=== PATIENT | female | born 1995 | race Caucasian/White ===

== ENCOUNTER 2019-03-11 09:30 | Inpatient (IN) ==
[2019-03-11] MEDS ORDERED: MEPERIDINE 25 MG/1 ML VIAL IV PRN (09:56)
[2019-03-11] MEDS ORDERED: ONDANSETRON 4 MG/2 ML VIAL IV PRN ×2 (09:56→12:06)
[2019-03-11] MEDS ORDERED: BUTORPHANOL 2 MG/ML VIAL IV PRN (09:56)
[2019-03-11] MEDS ORDERED: diphenhydrAMINE 50 MG/1 ML VIAL IV PRN ×2 (09:58)
[2019-03-11] MEDS ORDERED: FAMOTIDINE 20 MG/2 ML VIAL IV ONE (09:58)
[2019-03-11] MEDS ORDERED: CITRIC ACID/SODIUM CITRATE 30 ML UDCUP PO ONE (09:58)
[2019-03-11] MEDS ORDERED: PROMETHAZINE 25 MG/1 ML VIAL IM ONE (09:58)
[2019-03-11] MEDS ORDERED: NALOXONE 0.4 MG/ML VIAL IV PRN (09:58)
[2019-03-11] MEDS ORDERED: LACTATED RINGERS 1,000 ML IV ONE (09:58)
[2019-03-11] MEDS ORDERED: ePHEDrine 50 MG/ML AMP IV PRN (09:58)
[2019-03-11] MEDS ORDERED: fentaNYL 2 MCG/ROPIV 0.2% EPID 100 ML EPIDURAL SCH (10:00)
[2019-03-11] MEDS ORDERED: OXYTOCIN/LR 20 UNIT/1,000 ML BAG IV SCH (10:00)
[2019-03-11 10:16] LABS: Basophils # 0.1 10*3/uL (0.0-0.2); Basophils % 0.4 % (0.0-0.8); Eosinophils # 0.1 10*3/uL (0.0-0.87); Eosinophils % 0.4 % (0.00-10.9); Hematocrit 35.4 VOL% (35.7-47.0); Hemoglobin 10.8 GM/DL (12.0-16.0); Immature Granulocytes % 0.6 %; Immature Granulocytes Absolute 0.07 #; Lymphocytes # 1.9 10*3/uL (1.4-4.0); Lymphocytes % 15.1 % (21.3-54.2); Mean Corpuscular HGB Conc 30.5 GM/DL (32-36); Mean Corpuscular Volume 75.8 FL (87-102); Mean Platelet Volume 9.4 FL (9.6-12.0); Monocytes % 5.7 % (1.7-12.7); Neutrophils % 77.8 % (38.7-73.9); Platelet Count 268 T/CUMM (130-400); Red Blood Count 4.67 MC/CUMM (3.8-5.5); Red Cell Distribution Width 17.1 % (9.3-17.3); White Blood Count 12.5 T/CUMM (4-12)
[2019-03-11 10:23] LABS: Apearance,Urine Slightly Hazy (Clear); Bacteria,Urine Occasional /HPF (Few); Bilirubin,Urine Negative (Negative); Blood, Urine Negative (Negative); Glucose,Urine (UA) Negative (Negative); Ketones,Urine Negative (Negative); Mucus,Urine Moderate /LPF (Occasional); Nitrite,Urine Negative (Negative); Protein,Urine Negative; RBC,Urine 3 /HPF (0-4); Squamous Epithelial Cell,Urine Few /HPF (0-10); Urine Color Yellow (Yellow); Urine Specific Gravity 1.021 (1.001-1.035); WBC,Urine 7 /HPF (0-6)
[2019-03-11] MEDS: LACTATED RINGERS 1,000 ML IV SCH ×2 (10:35→11:35)
[2019-03-11] MEDS ORDERED: fentaNYL 100 MCG/2 ML VIAL ONE (10:44)
[2019-03-11] MEDS ORDERED: OXYTOCIN/LR 0 UNIT/0 ML BAG IV ONE (10:45)
[2019-03-11] MEDS ORDERED: miSOPROStol 200 MCG TABLET ONE ×2 (10:45→11:51)
[2019-03-11] MEDS ORDERED: TRANEXAMIC ACID 1,000 MG/10 ML VIAL ONE ×2 (10:45→11:51)
[2019-03-11] MEDS ORDERED: METHYLERGONOVINE 0.2 MG/1 ML AMP ONE ×2 (10:46→11:51)
[2019-03-11] MEDS ORDERED: CARBOPROST TROMETHAMINE 250 MCG/ML AMP IM ONE ×2 (10:46→11:52)
[2019-03-11] MEDS ORDERED: OXYTOCIN/LR 20 UNIT/1,000 ML BAG IV ONE ×2 (11:51→12:06)
[2019-03-11] MEDS ORDERED: WITCH HAZEL PADS 100/JAR TOP PRN (12:06)
[2019-03-11] MEDS ORDERED: BISACODYL 10 MG SUPP RECTAL PRN (12:06)
[2019-03-11] MEDS ORDERED: MEASLES/MUMPS/RUBELLA VACCINE 0.5 ML VIAL SUBCUT ONE (12:06)
[2019-03-11] MEDS ORDERED: LANOLIN 50% CREAM 0.3 OZ TUBE TOP PRN (12:06)
[2019-03-11] MEDS ORDERED: DIPH/TET/ACEL PERT BOOSTER VACCINE 0.5 ML VIAL IM ONE (12:06)
[2019-03-11] MEDS ORDERED: oxyCODONE/ACETAMINOPHEN 5-325 MG TABLET PO PRN ×2 (12:06)
[2019-03-11] MEDS ORDERED: ACETAMINOPHEN 325 MG TABLET PO PRN (12:06)
[2019-03-11] MEDS ORDERED: HYDROCORTISONE 2.5% RECTAL CREAM 30 GM TUBE TOP PRN (12:06)
[2019-03-11] MEDS ORDERED: BENZOCAINE 20%/MENTHOL 0.5% SPRAY 56 GM CAN TOP PRN (12:06)
[2019-03-11] MEDS ORDERED: RHO(D) IMMUNE GLOBULIN 300 MCG SYRINGE IM ONE (12:06)
[2019-03-11] MEDS: DOCUSATE SODIUM 100 MG CAPSULE PO SCH (20:47)
[2019-03-12 05:22] LABS: Basophils # 0.1 10*3/uL (0.0-0.2); Basophils % 0.5 % (0.0-0.8); Eosinophils # 0.1 10*3/uL (0.0-0.87); Eosinophils % 1.1 % (0.00-10.9); Hematocrit 29.3 VOL% (35.7-47.0); Hemoglobin 8.9 GM/DL (12.0-16.0); Immature Granulocytes % 0.5 %; Immature Granulocytes Absolute 0.05 #; Lymphocytes # 2.3 10*3/uL (1.4-4.0); Lymphocytes % 24.4 % (21.3-54.2); Mean Corpuscular HGB Conc 30.4 GM/DL (32-36); Mean Corpuscular Volume 76.1 FL (87-102); Mean Platelet Volume 9.7 FL (9.6-12.0); Monocytes % 6.7 % (1.7-12.7); Neutrophils % 66.8 % (38.7-73.9); Platelet Count 191 T/CUMM (130-400); Red Blood Count 3.85 MC/CUMM (3.8-5.5); Red Cell Distribution Width 17.2 % (9.3-17.3); White Blood Count 9.3 T/CUMM (4-12)
[2019-03-12] MEDS: DOCUSATE SODIUM 100 MG CAPSULE PO SCH ×2 (10:37→21:14)
[2019-03-12] MEDS: IBUPROFEN 800 MG TABLET PO PRN (17:30)
[2019-03-13] MEDS: IBUPROFEN 800 MG TABLET PO PRN (04:19)
[2019-03-13] MEDS: DOCUSATE SODIUM 100 MG CAPSULE PO SCH (08:43)
[2019-03-13 09:26] VITALS: BP 110/82
== END 2019-03-13 14:15 | disposition home or self-care (01) | DRG 560 ==
LOC: N.LDOUT 09:30 → N.LD 09:32 → N.OB 15:01
PROVIDERS: ADMIT Specialist; ATTEND Specialist

== ENCOUNTER 2020-03-03 09:01 | Inpatient (IN) ==
[2020-03-03] MEDS ORDERED: ONDANSETRON 4 MG/2 ML VIAL IV PRN (09:25)
[2020-03-03] MEDS ORDERED: LACTATED RINGERS 500 ML IV PRN (09:25)
[2020-03-03] MEDS ORDERED: BUTORPHANOL 2 MG/ML VIAL IV PRN (09:25)
[2020-03-03] MEDS ORDERED: OXYTOCIN/LR 20 UNIT/1,000 ML BAG IV ONE (09:26)
[2020-03-03] MEDS ORDERED: LACTATED RINGERS 1,000 ML IV SCH (09:30)
[2020-03-03 09:55] LABS: Basophils % 0.3 % (0.0-0.8); Eosinophils % 0.2 % (0.00-10.9); Hematocrit 27.3 VOL% (35.7-47.0); Hemoglobin 7.9 GM/DL (12.0-16.0); Immature Granulocytes % 0.7 %; Immature Granulocytes Absolute 0.09 #; Lymphocytes # 1.2 10*3/uL (1.4-4.0); Lymphocytes % 9.2 % (21.3-54.2); Mean Corpuscular HGB Conc 28.9 GM/DL (32-36); Mean Corpuscular Volume 69.3 FL (87-102); Mean Platelet Volume 9.8 FL (9.6-12.0); Monocytes % 6.1 % (1.7-12.7); Neutrophils % 83.5 % (38.7-73.9); Platelet Count 161 T/CUMM (130-400); Red Blood Count 3.94 MC/CUMM (3.8-5.5); Red Cell Distribution Width 21.3 % (9.3-17.3); White Blood Count 12.8 T/CUMM (4-12)
[2020-03-03 10:14] LABS: Anisocytosis 1+; Ovalocytes Few; Platelet Estimate Normal
[2020-03-03 10:15] LABS: Polychromasia Slight
[2020-03-03] MEDS ORDERED: oxyCODONE/ACETAMINOPHEN 5-325 MG TABLET PO PRN (10:54)
[2020-03-03] MEDS: FERROUS SULFATE 325 MG TABLET PO SCH ×2 (12:20→21:09)
[2020-03-03] MEDS: IBUPROFEN 800 MG TABLET PO PRN ×2 (12:20→19:15)
[2020-03-03] MEDS: oxyCODONE/ACETAMINOPHEN 5-325 MG TABLET PO PRN (13:25)
[2020-03-03 19:24] LABS: Hematocrit 25.9 VOL% (35.7-47.0); Hemoglobin 7.4 GM/DL (12.0-16.0)
[2020-03-03] MEDS: DOCUSATE SODIUM 100 MG CAPSULE PO SCH (21:09)
[2020-03-04 06:42] LABS: Basophils # 0.1 10*3/uL (0.0-0.2); Basophils % 0.6 % (0.0-0.8); Eosinophils # 0.1 10*3/uL (0.0-0.87); Eosinophils % 1.4 % (0.00-10.9); Hematocrit 24.6 VOL% (35.7-47.0); Hemoglobin 7.1 GM/DL (12.0-16.0); Immature Granulocytes % 0.9 %; Immature Granulocytes Absolute 0.08 #; Lymphocytes % 22.4 % (21.3-54.2); Mean Corpuscular HGB Conc 28.9 GM/DL (32-36); Mean Corpuscular Volume 69.5 FL (87-102); Mean Platelet Volume 9.8 FL (9.6-12.0); Monocytes % 7.8 % (1.7-12.7); NRBC # 0.02 10*3/uL; Neutrophils % 66.9 % (38.7-73.9); Platelet Count 132 T/CUMM (130-400); Red Blood Count 3.54 MC/CUMM (3.8-5.5); Red Cell Distribution Width 21.4 % (9.3-17.3); White Blood Count 8.9 T/CUMM (4-12)
[2020-03-04 08:43] LABS: Platelet Estimate Adequate
[2020-03-04 08:44] LABS: Anisocytosis 2+; Ovalocytes Few; Poikilocytosis Slight; Polychromasia Slight
[2020-03-04] MEDS: DOCUSATE SODIUM 100 MG CAPSULE PO SCH ×2 (09:30→21:28)
[2020-03-04] MEDS: FERROUS SULFATE 325 MG TABLET PO SCH ×2 (09:30→21:28)
[2020-03-04] MEDS: IBUPROFEN 800 MG TABLET PO PRN ×2 (10:03→21:27)
[2020-03-04] MEDS: oxyCODONE/ACETAMINOPHEN 5-325 MG TABLET PO PRN ×2 (10:04→21:28)
[2020-03-04] MEDS: KETOROLAC 30 MG/1 ML VIAL IV SCH ×2 (11:03→17:15)
[2020-03-05] MEDS: KETOROLAC 30 MG/1 ML VIAL IV SCH ×2 (01:14→06:36)
[2020-03-05 07:52] VITALS: BP 107/70
[2020-03-05] MEDS ORDERED: BENZOCAINE 20%/MENTHOL 0.5% SPRAY 56 GM CAN TOP PRN (08:49)
[2020-03-05] MEDS: FERROUS SULFATE 325 MG TABLET PO SCH (09:05)
[2020-03-05] MEDS: IBUPROFEN 800 MG TABLET PO PRN (09:05)
[2020-03-05] MEDS: DOCUSATE SODIUM 100 MG CAPSULE PO SCH (09:05)
[2020-03-05] MEDS: oxyCODONE/ACETAMINOPHEN 5-325 MG TABLET PO PRN (09:05)
== END 2020-03-05 12:40 | disposition home or self-care (01) | DRG 560 ==
LOC: N.LDOUT 09:01 → N.LD 09:02 → N.OB 10:45
PROVIDERS: ADMIT Obstetrics & Gynecology; ATTEND Specialist

== ENCOUNTER 2021-01-14 21:11 | Inpatient (IN) ==
[2021-01-14] MEDS ORDERED: LACTATED RINGERS 1,000 ML IV ONE (21:28)
[2021-01-14] MEDS ORDERED: ONDANSETRON 4 MG/2 ML VIAL IV PRN (21:28)
[2021-01-14] MEDS ORDERED: LACTATED RINGERS 1,000 ML IV SCH (21:30)
[2021-01-14 22:11] LABS: Basophils % 0.4 % (0.0-0.8); Eosinophils # 0.1 10*3/uL (0.0-0.87); Eosinophils % 0.9 % (0.00-10.9); Hematocrit 29.9 VOL% (35.7-47.0); Hemoglobin 8.7 GM/DL (12.0-16.0); Immature Granulocytes % 0.5 %; Immature Granulocytes Absolute 0.05 #; Lymphocytes # 1.9 10*3/uL (1.4-4.0); Lymphocytes % 19.8 % (21.3-54.2); Mean Corpuscular HGB Conc 29.1 GM/DL (32-36); Mean Corpuscular Volume 69.5 FL (87-102); Mean Platelet Volume 9.6 FL (9.6-12.0); Neutrophils % 71.4 % (38.7-73.9); Platelet Count 174 T/CUMM (130-400); Red Cell Distribution Width 20.3 % (9.3-17.3); White Blood Count 9.4 T/CUMM (4-12)
[2021-01-14 22:32] LABS: Alanine Aminotransferase < 9 U/L (13-56); Albumin 2.5 G/DL (3.4-5.0); Alkaline Phosphatase 134 U/L (45-117); Aspartate Amino Transferase 10 U/L (0-37); Blood Urea Nitrogen 4 MG/DL (7-18); Calcium 8.7 MG/DL (8.5-10.1); Carbon Dioxide 22 MMOL/L (21-32); Estimated Glom Filtration Rate 149 ML/MIN; Glucose 93 MG/DL (74-106); Osmolality,Calculated 271.7 MOS/KG (273-304); Potassium 3.6 MMOL/L (3.5-5.1); Sodium 138 MMOL/L (136-145); Total Protein 6.7 G/DL (6.4-8.2)
[2021-01-14] MEDS ORDERED: BUTORPHANOL 2 MG/ML VIAL IV PRN (23:03)
[2021-01-14] MEDS: MEPERIDINE 50 MG/1 ML VIAL IV PRN (23:16)
[2021-01-15] MEDS ORDERED: AMPICILLIN INJ 2,000 MG in SODIUM CHLORIDE 0.9% 100 ML IV ONE (04:00)
[2021-01-15] MEDS: MEPERIDINE 50 MG/1 ML VIAL IV PRN (04:19)
[2021-01-15] MEDS ORDERED: ePHEDrine 50 MG/ML VIAL IV PRN (07:40)
[2021-01-15] MEDS ORDERED: CITRIC ACID/SODIUM CITRATE 30 ML UDCUP PO ONE (07:40)
[2021-01-15] MEDS ORDERED: hydrOXYzine HCL 25 MG/1 ML VIAL IM PRN (07:40)
[2021-01-15] MEDS ORDERED: NALOXONE 0.4 MG/ML VIAL IV PRN (07:40)
[2021-01-15] MEDS ORDERED: diphenhydrAMINE 50 MG/1 ML VIAL IV PRN ×2 (07:40)
[2021-01-15] MEDS ORDERED: FAMOTIDINE 20 MG/2 ML VIAL IV ONE (07:40)
[2021-01-15] MEDS ORDERED: LACTATED RINGERS 1,000 ML IV ONE (07:40)
[2021-01-15] MEDS ORDERED: PROMETHAZINE 25 MG/1 ML VIAL IM ONE (07:40)
[2021-01-15] MEDS ORDERED: AMPICILLIN INJ 1,000 MG in SODIUM CHLORIDE 0.9% 100 ML IV SCH (08:00)
[2021-01-15] MEDS ORDERED: fentaNYL 2 MCG/ROPIV 0.2% EPID 100 ML EPIDURAL SCH (08:00)
[2021-01-15] MEDS ORDERED: OXYTOCIN/LR 20 UNIT/1,000 ML BAG IV SCH (09:00)
[2021-01-15 09:58] LABS: Bilirubin,Urine Negative (Negative); Blood, Urine Small mg/dL (Negative); Glucose,Urine (UA) Negative (Negative); Ketones,Urine Negative (Negative); Mucus,Urine Occasional /LPF (Occasional); Nitrite,Urine Negative (Negative); Protein,Urine Negative; Urine Appearance CLEAR (Clear); Urine Color Yellow (Yellow); Urine Specific Gravity 1.015 (1.001-1.035); Urine Urobilinogen < 2.0 EU/DL (0.2-1.0); WBC,Urine 1 /HPF (0-6)
[2021-01-15] MEDS ORDERED: RHO(D) IMMUNE GLOBULIN 300 MCG SYRINGE IM ONE (10:18)
[2021-01-15] MEDS ORDERED: BISACODYL 10 MG SUPP RECTAL PRN (10:18)
[2021-01-15] MEDS ORDERED: WITCH HAZEL PADS 100/JAR TOP PRN (10:18)
[2021-01-15] MEDS ORDERED: ACETAMINOPHEN 325 MG TABLET PO PRN (10:18)
[2021-01-15] MEDS ORDERED: DIPH/TET/ACEL PERT BOOSTER VACCINE 0.5 ML VIAL IM ONE (10:18)
[2021-01-15] MEDS ORDERED: MEASLES/MUMPS/RUBELLA VACCINE 0.5 ML VIAL SUBCUT ONE (10:18)
[2021-01-15] MEDS ORDERED: BENZOCAINE 20%/MENTHOL 0.5% SPRAY 56 GM CAN TOP PRN (10:18)
[2021-01-15] MEDS ORDERED: ONDANSETRON 4 MG/2 ML VIAL IV PRN (10:18)
[2021-01-15] MEDS ORDERED: oxyCODONE/ACETAMINOPHEN 5-325 MG TABLET PO PRN (10:18)
[2021-01-15] MEDS ORDERED: OXYTOCIN/LR 20 UNIT/1,000 ML BAG IV ONE (10:18)
[2021-01-15] MEDS ORDERED: LANOLIN 50% CREAM 0.3 OZ TUBE TOP PRN (10:18)
[2021-01-15] MEDS ORDERED: HYDROCORTISONE 2.5% RECTAL CREAM 30 GM TUBE TOP PRN (10:18)
[2021-01-15 10:29] LABS: Cord Arterial Blood HCO3 20.3 MMOL/L
[2021-01-15 10:31] LABS: Cord Venous Blood HCO3 21.1 MMOL/L; Cord Venous Blood PCO2 45.2 MMHG
[2021-01-15] MEDS: oxyCODONE/ACETAMINOPHEN 5-325 MG TABLET PO PRN (16:00)
[2021-01-15] MEDS: IBUPROFEN 800 MG TABLET PO PRN ×2 (16:00→21:40)
[2021-01-15] MEDS: DOCUSATE SODIUM 100 MG CAPSULE PO SCH (19:34)
[2021-01-15] MEDS ORDERED: diphenhydrAMINE CAP 25 MG CAPSULE ONE (23:13)
[2021-01-15] MEDS ORDERED: diphenhydrAMINE CAP 25 MG CAPSULE PO PRN (23:16)
[2021-01-16] MEDS: DOCUSATE SODIUM 100 MG CAPSULE PO SCH ×3 (00:35→21:01)
[2021-01-16 04:38] LABS: Basophils % 0.3 % (0.0-0.8); Eosinophils # 0.1 10*3/uL (0.0-0.87); Eosinophils % 0.8 % (0.00-10.9); Hematocrit 25.3 VOL% (35.7-47.0); Hemoglobin 7.2 GM/DL (12.0-16.0); Immature Granulocytes % 0.3 %; Immature Granulocytes Absolute 0.03 #; Lymphocytes # 2.1 10*3/uL (1.4-4.0); Lymphocytes % 24.2 % (21.3-54.2); Mean Corpuscular HGB Conc 28.5 GM/DL (32-36); Mean Corpuscular Volume 70.1 FL (87-102); Mean Platelet Volume 10.1 FL (9.6-12.0); Monocytes % 7.9 % (1.7-12.7); Neutrophils % 66.5 % (38.7-73.9); Platelet Count 129 T/CUMM (130-400); Red Blood Count 3.61 MC/CUMM (3.8-5.5); White Blood Count 8.8 T/CUMM (4-12)
[2021-01-16 05:05] LABS: Hypochromasia 2+; Microcytosis 1+; Ovalocytes Slight
[2021-01-16] MEDS: FERROUS SULFATE 325 MG TABLET PO SCH ×2 (08:35→21:01)
[2021-01-16] MEDS: oxyCODONE/ACETAMINOPHEN 5-325 MG TABLET PO PRN ×3 (08:35→21:42)
[2021-01-17] MEDS: oxyCODONE/ACETAMINOPHEN 5-325 MG TABLET PO PRN (03:40)
[2021-01-17 07:36] VITALS: BP 119/70
[2021-01-17] MEDS: FERROUS SULFATE 325 MG TABLET PO SCH (09:58)
[2021-01-17] MEDS: DOCUSATE SODIUM 100 MG CAPSULE PO SCH (09:58)
== END 2021-01-17 11:20 | disposition home or self-care (01) | DRG 560 ==
LOC: N.LDOUT 21:11 → N.LD 21:12 → N.OB 01-15 14:10
PROVIDERS: ADMIT Specialist; ATTEND Specialist